=== PATIENT | female | born 1990 ===

== ENCOUNTER 2020-12-14 05:55 | Inpatient (IN) | payer BC, OTHER ==
[~2020-12-14] VITALS: Ht 152.4 cm; Wt 88.5 kg
[2020-12-14] MEDS ORDERED: PRENATAL VITAM1 EACH PO (06:34)
--- NOTE | 2020-12-14 06:48 | NUR ---
0640 COVID nasal swab obtained and sent to Lab without incident. Betzaida Bernal, LAB[employer]
--- NOTE | 2020-12-15 08:19 | PR ---
[facility] [address] [facility] [place] [address] Signed PP Progress Notes Datetime Report Generated by CPN: 12/15/2020 08:19 SUBJECTIVE: [id number] Pain: Within Normal Limits Vital Signs: [id number] Vital Signs: Reviewed; Within Normal Limits Cardiovascular: Not Done Respiratory: Not Done Abdomen/Uterus: Abnormal Lochia: Normal Vulva/Perineum: Not Done Breasts: Not Done CVA Tenderness: Not Done Extremities: Normal Incision: Not Applicable Progress: Normal Exam Comments: Fundus firm, NT @ U-2. H/H 12.7/37.1, WBC 10.7, plat 197k IMPRESSION/PLAN/PROCEDURES: [id number] Impression: Normal Progression Plan: Discharge Procedures: None Progress Notes: Doing well. She desires discharge. Signing Physician: Odalis Lockhart MD Copies: ~ *Electronically Signed* 12/15/20818 ODALIS LOCKHART MD PATIENT NAME: MICHELLE HODGES PROGRESS NOTE DATE OF : 88 PHYSICIAN: ODALIS LOCKHART MD RPT #: [id number] REPORT IS CONFIDENTIAL AND NOT TO BE RELEASED WITHOUT AUTHORIZATION
== END 2020-12-15 12:00 | disposition home or self-care (01) | DRG 807 ==
LOC: FBC 05:55
PROVIDERS: ADMIT Obstetrics & Gynecology; ATTEND Obstetrics & Gynecology
PROC: 10E0XZZ Delivery of Products of Conception, External Approach (ICD-10-PCS; principal; 2020-12-14)
PROC: 10907ZC Drainage of Amniotic Fluid, Therapeutic from Products of Conception, Via Natural or Artificial Opening (ICD-10-PCS; 2020-12-14)
PROC: 0UQMXZZ Repair Vulva, External Approach (ICD-10-PCS; 2020-12-14)
DX: O48.0 Post-term pregnancy (principal); Z37.0 Single live birth; Z20.822 Contact with and (suspected) exposure to COVID-19; Z3A.40 40 weeks gestation of pregnancy; O26.03 Excessive weight gain in pregnancy, third trimester; O62.3 Precipitate labor; O69.1XX0 Labor and delivery complicated by cord around neck, with compression, not applicable or unspecified; O70.0 First degree perineal laceration during delivery
CPT/HCPCS: 85027; C9803; J2590; U0003